=== PATIENT | male | born 2000 | race Caucasian/White ===

== ENCOUNTER → 2021-03-25 | Outpatient (REF) ==
[~2021-03-25] MED LIST: HYDR-4226 PO; LISD60CA PO; SULF-106 PO
--- NOTE | 2021-03-25 10:33 | Diagnostic Imaging Report ---
INDICATION: Injury to left foot. TIME OF EXAM: 10:12 AM. FINDINGS: Three views of the left foot demonstrate normal alignment. The metatarsals and phalanges are intact. The midfoot and hindfoot are unremarkable. No fractures are seen. IMPRESSION: No acute bony abnormality is detected. Dictated by: Dictated on workstation # [id number]
== END ==
LOC: OCC 09:58
PROVIDERS: ATTEND Family Medicine
DX: S99.922A Unspecified injury of left foot, initial encounter (principal); X58.XXXA Exposure to other specified factors, initial encounter
CPT/HCPCS: 73630

== ENCOUNTER 2021-11-15 09:59 | Emergency (ER) | payer BC ==
[~2021-11-15] VITALS: Ht 177 cm; Wt 77.0 kg
--- NOTE | 2021-11-15 11:10 | ED Cough/URI ---
General Chief Complaint: Cough/Cold/Flu Symptoms Stated Complaint: CONGESTION/COUGH Nursing Triage Note: PT TO ED W/ C/O COUGH CONGESTION ONSET X3 DAYS. REPORTS HAS HAD TESTS AT HOME X3 ET DENIES POSITIVE RESULT. STATES WORK IS REQUIRING TEST. PT DENIES FEVER AT THIS TIME. NO OTHER C/O VOICED. (BEATRICE REYNOLDS) History of Present Illness Date Seen by Provider: Nov 15, 2021 Time Seen by Provider: 10:50 Initial Comments 21-year-old male presents for sinus congestion and cough. He works at [employer], and has had sinus congestion since 11/13/2021. He received the Moderna vaccines in July he is not qualified for a booster yet. He took 2-3 tests at home and has been negative. He denies any fevers. He has no shortness of breath. He has not taken any iyet-rup-rsimskd medicines for his symptoms. Timing/Duration: other (11/13/21) Severity/Quality: mild, productive cough Prior Episodes/Possible Cause: no prior episodes Associated Symptoms: cough, muscle aches, nasal congestion, nasal drainage (BEATRICE REYNOLDS) Allergies and Home Medications Allergies Coded Allergies: No Known Drug Allergies (Unverified , 05/24/11) Patient Home Medication List Home Medication List Reviewed: Yes (BEATRICE REYNOLDS) Hydrocodone/Acetaminophen (Hydrocodone/Acetaminophen 5 MG/325 MG TAB) 1 Each Tablet, 1 EACH PO Q4H PRN for PAIN Prescribed by: EJ GAYTAN on 03/03/16 1631 Lisdexamfetamine Dimesylate (Vyvanse) 60 Mg Capsule, 60 MG PO DAILY, (Reported) Entered as Reported by: MIGUEL HARRISON on 05/24/11 1050 Sulfamethoxazole/Trimethoprim (Septra 80-400 Tablet) 1 Each Tablet, 1 EACH PO BID Prescribed by: SANDOR SANCHEZ on 05/24/11 1123 Review of Systems Review of Systems Constitutional: see HPI; No chills, No fever; malaise EENTM: see HPI, nose congestion; No throat pain Respiratory: see HPI, cough; No dyspnea on exertion, No short of breath Cardiovascular: no symptoms reported, see HPI Gastrointestinal: no symptoms reported, see HPI (BEATRICE REYNOLDS) All Other Systems Reviewed Negative Unless Noted: Yes (BEATRICE REYNOLDS) Past Hkrwcli-Hvnmss-Ptvyxa Hx Patient Social History Tobacco Use?: No Use of E-Cig and/or Vaping dev: Yes E-Cig or Vaping type used: Nicotine Use of E-Cig and/or Vaping Laurent: Current Everyday User Substance use?: No Alcohol Use?: No Pt feels they are or have been: No (BEATRICE REYONLDS) Past Medical History Surgery/Hospitalization HX: SHOULDER Reproductive Disorders: No (BEATRICE REYNOLDS) Family Medical History Reviewed Nursing Family Hx (BEATRICE REYNOLDS) Physical Exam Vital Signs - First Documented 11/15/21 10:24 Temp 36.8 Pulse 78 Resp 20 B/P (MAP) 122/79 (93) Pulse Ox 97 O2 Delivery Room Air (ANTWON SETHI MD) Capillary Refill : Less Than 3 Seconds (BEATRICE REYNOLDS) Height: 5'3" Weight: 146lbs. oz. [id number]; 24.00 BMI Method: General Appearance: WD/WN, no apparent distress HEENT: PERRL/EOMI, TMs normal, other (Maxillary frontal sinus tenderness. Postnasal drainage. Moist mucous membranes.) Neck: non-tender, full range of motion, supple, normal inspection Respiratory: chest non-tender, lungs clear, normal breath sounds, no respi ratory distress, no accessory muscle use Cardiovascular: normal peripheral pulses, regular rate, rhythm Gastrointestinal: normal bowel sounds, non tender, soft Neurologic/Psychiatric: no motor/sensory deficits, alert, normal mood/affect, oriented x 3 Skin: normal color, warm/dry (BEATRICE REYNOLDS) Progress/Results/Core Measures Suspected Sepsis SIRS Temperature: Pulse: 78 Respiratory Rate: 20 Blood Pressure 122 /79 Mean: 93 (BEATRICE REYNOLDS) Results/Orders Lab Results Laboratory Tests Test 11/15/21 10:25 Range/Units Influenza Type A (RT-PCR) Not Detected Not Detecte Influenza Type B (RT-PCR) Not Detected Not Detecte SARS-CoV-2 RNA (RT-PCR) Detected H Not Detecte (ANTWON SETHI MD) My Orders Orders - ANTWON SETHI MD Covid 19 Inhouse Test (11/15/21 10:34) Influenza A And B By Pcr (11/15/21 10:34) (ANTWON SETHI MD) Vital Signs/I&O 11/15/21 11/15/21 10:24 11:24 Temp 36.8 Pulse 78 74 Resp 20 20 B/P (MAP) 122/79 (93) 132/85 Pulse Ox 97 98 O2 Delivery Room Air Room Air (ANTWON SETHI MD) Vital Signs/I&O Capillary Refill : Less Than 3 Seconds (BEATRICE REYNOLDS) Blood Pressure Mean: 93 Departure Impression Primary Impression: COVID-19 Additional Impression: Sinus congestion Disposition: HOME, SELF-CARE Condition: Stable Departure-Patient Inst. Decision time for Depature: 11:10 (BEATRICE REYNOLDS) Referrals: [facility] [place]/Family) Primary Care Physician Patient Instructions: COVID-19 (DC) Add. Discharge Instructions: You are COVID +, please follow the [facility] guidelines for Isolation/Quarantine. Notify close contacts, from the last 5 days. They do not need to test, unless they have symptoms or per [facility] guidelines. They can schedule an outpatient test through their Primary care provider. Use Afrin nasal spray for 3-4 days, then stop. Use Dayquil and Nyquil for symptoms. Increase water intake, 16 oz every 2 hours, while awake. Take deep breaths and walk 5-10 min, every 2 hours, while awake. Take Aspirin 81 mg daily for 3-4 weeks. Call your primary care provider, if symptoms are not improving or worsen. Alternate Tylenol 650 mg and Ibuprofen 600 mg every 4 hours, for fever or discomfort. Return the emergency dept, for new urgent healthcare issues. All discharge instructions reviewed with patient and/or family. Voiced understanding. Work/School Note: Work Release Form Date Seen in the Emergency Department: Nov 15, 2021 Other Restrictions Listed Below: COVID + Symptoms began 11/13/21, Follow [facility] Guidelines for return to work ATTENDING PHYSICIAN NOTE: I was physically present as attending physician in the emergency department during the care of this patient, but I was not directly involved in the decision making or delivery of care for this patient. (ANTWON SETHI MD) BEATRICE REYNOLDS Nov 15, 2021 11:10 ANTWON SETHI MD Nov 15, 2021 15:51
[2021-11-15 11:24] VITALS: BP 132/85
== END 2021-11-15 11:24 | disposition home or self-care (01) ==
LOC: EDUNIT# 09:59 → ER 10:02
DX: U07.1 COVID-19 (principal); R09.81 Nasal congestion; F17.290 Nicotine dependence, other tobacco product, uncomplicated
CPT/HCPCS: 87636; 99283